=== PATIENT | female | born 1980 | race Caucasian/White ===

== ENCOUNTER 2016-07-04 06:00 | Inpatient (IN) ==
[2016-07-04] MEDS ORDERED: Naloxone 0.4 MG/ML INJ IVP PRN (06:03)
[2016-07-04] MEDS ORDERED: Metoclopramide 10 MG/2 ML VIAL IVP PRN (06:03)
[2016-07-04] MEDS ORDERED: Famotidine 20 MG/2 ML VIAL IVP PRN (06:03)
[2016-07-04] MEDS ORDERED: *HR* Nalbuphine 20 MG/ML AMPUL IVP PRN (06:06)
[2016-07-04] MEDS ORDERED: Oxytocin 20 units/ LR 1000 mL 20 UNIT/1,000 ML BAG IVC SCH (06:15)
[2016-07-04] MEDS ORDERED: Ringers Solution, Lactated 1,000 ML IVC SCH (06:15)
--- NOTE | 2016-07-04 06:58 | OB/GYN History & Physical ---
Date of Encounter: 07/04/16 Time of Encounter: 06:53 Assessment and Plan (1) 39 weeks gestation of Current visit: Yes Status: Acute -Induction today. -No complications during this Plan -Continue to monitor, LR -Continue pitocin -antinausea, pain meds, pepcid as needed. (2) Smoking Current visit: Yes Status: Acute -Current everyday smoker (3) H/O retained placenta in prior , currently Current visit: Yes Status: Acute -2008. Required D&C. Transfusion -B Positive Qualifiers: Trimester: third trimester Qualified Code(s): O09.293 - Supervision of with other poor reproductive or obstetric history, third trimester History of Present Illness Chief complaint: induction at 39w HPI: Ms. Lema is a 35F, , 39w6d(?) presents to be induced. There has been no complications with this delivery. Patient is a smoker. She has no complaints or concerns at this time. Desires an epidural. She is a smoker. Patient doesn't take any medication. Her OB is Dr. Jaimes. In 2008, patient underwent a D&C for retained placental contents. She "kept bleeding" and had to get a transfusion. Doesn't know whether she was in DIC or not. Denies previous or family diagnosis of bleeding disorders. GBS negative. BLood type B positive. Past Med Surg Social Fam HX - Past Medical History Medical history: no medical history Psychiatric history: no psych history - Past Surgical History Surgical History: other (D&C for retained placental contents. ) - Social History Smoking Status: Current every day smoker Packs per day: 0.5 Smokeless Tobacco Status: No Alcohol use: none Drug use: none - Family History Mother Hx Family Musculoskeletal Disorders: Yes (Parkinsons) Obstetrical History - Pregnancies : 4 Para: 3 Term: 3 : 0 Ab's: 0 Livin - History/Complications History/Complications: D&C for retained placental contents in 2008. Required blood transfusion. Medications and Allergies Ferrous Sulfate [Iron] 325 mg PO DAILY 07/04/16 [History] Vit/Iron Fumarate/FA [ Tablet] 1 each PO DAILY 07/04/16 [ History] Allergies No Known Allergies Allergy (Verified 07/04/16 06:38) Exam - Vital Signs Vital signs: Initial Vital Signs Temp Pulse Resp BP 97.5 F L 98 18 118/65 07/04/16 06:37 07/04/16 06:37 07/04/16 06:37 07/04/16 06:37 - Constitutional Constitutional: well developed, well nourished, no acute distress, average body habitus - Cardiovascular Cardiovascular exam: +S1, +S2, tachycardia - Abdomen Abdomen: Present: gravid, non tender - Uterus Uterus exam: Present: normal size, normal contour Results All other labs normal. - VTE Reasons for not Prescribing Prophylaxis: Treatment not Indicated - Low risk for VTE
[2016-07-04 07:28] LABS: Basophils % 0.3 %; Eosinophils # 0.1 K/mcL (0.0-0.6); Eosinophils % 1.2 %; Hematocrit 41.4 % (35.3-44.9); Hemoglobin 14.5 g/dL (11.5-15.4); Immature Granulocytes % 1.7 % (0-4); Lymphocytes # 1.7 K/mcL (0.6-4.6); Lymphocytes % 15.8 %; Mean Corpuscular Hemoglobin 31.5 pg (28.0-33.3); Mean Platelet Volume 12.1 fL (9.4-12.4); Monocytes # 0.9 K/mcL (0.0-1.3); Monocytes % 8.2 %; Platelet Count 165 K/mcL (140-400); Red Cell Distribution Width 12.7 % (11.5-14.5); Segmented Neutrophils % 72.8 %
[2016-07-04] MEDS ORDERED: miSOPROStol 25 MCG TABLET VG ONE (07:56)
[2016-07-04] MEDS ORDERED: *HR* FentaNYL (PF) 100 MCG/2 ML VIAL EP ONE (10:13)
[2016-07-04] MEDS ORDERED: Ringers Solution, Lactated 500 ML IVC ONE (10:13)
[2016-07-04] MEDS ORDERED: *HR* Ropivacaine/PF 0.2% 10 ML AMPUL EP ONE (10:13)
[2016-07-04] MEDS ORDERED: EPHEDrine 50 MG/ML VIAL IVP PRN (10:13)
[2016-07-04] MEDS ORDERED: Epidural Premix (fent/bupiv) 110 ML EP SCH (10:15)
--- NOTE | 2016-07-04 10:15 | Anesthesia Evaluation PreOp ---
Date of Encounter: 07/04/16 Time of Encounter: 10:15 - Past History Planned Operation: Labor Epidural Cardiac History: Denies any Significant Hx Pulmonary History: Smoker NEONATAL NURSE PRACTITIONER History: Denies Any Significant HX Other Medical History: Other (Gestational Diabetes - Diet Controlled) Anesthesia History: No Prior Anesthetic Complications, Past Anesthesia : Yes Alcohol Use: none Drug use: none Medications and Allergies Ferrous Sulfate [Iron] 325 mg PO DAILY 07/04/16 [History] Vit/Iron Fumarate/FA [ Tablet] 1 each PO DAILY 07/04/16 [ History] Allergies No Known Allergies Allergy (Verified 07/04/16 06:38) - Meds/Allergy Pre-op Review Medications Reviewed: Yes Allergies Reviewed: Yes Beta Blockers on Current Med List: No Anesthesia Results - Labs 07/04/16 06:58 Anesthesia Exam Last Vital Signs Temp 97.5 F L 07/04/16 06:37 Pulse 98 07/04/16 06:37 Resp 18 07/04/16 06:37 BP 118/65 07/04/16 06:37 Height: 1.7m Weight: 68kg NPO (# of Hours): >4 Pain Scale: 4 Pain Scale Used: Numeric (1 - 10) - HEENT Pupil (Motor): Pupils equal Mallampati: II Teeth: Normal Oral Opening: Greater than 3 - NEONATAL NURSE PRACTITIONER LOC: Oriented NEONATAL NURSE PRACTITIONER Motor: Normal RUE, Normal LUE, Normal RLE, Normal LLE, Normal Face NEONATAL NURSE PRACTITIONER Sensory: Normal: RUE, LUE, RLE, LLE, Face - Cardiac Rhythm: Regular Murmur: None JVD: No Carotid Bruit: No - Pulmonary Breath Sounds: bilateral Clear Respiratory Effort: Symmetrical Anesthesia Assess/Plan ASA Score: 2 Modified Zoya Scale for Level of Consciousness: Cooperative, oriented, and tranquil Anesthetic Plan: Regional Autologous Blood: Yes Monitoring Plan: Standard Monitors Recovery Plan: Other
--- NOTE | 2016-07-04 13:05 | OB Labor Progress Note ---
Date of Encounter: 07/04/16 Time of Encounter: 13:04 Labor Progress Note - Subjective Subjective: patient is s/p cystotec - Vital Signs Vital Signs: VSS - Cervix Cervix: 4cm/80/-1 - Heart Tones Heart Tones: CAT 1 - Plan Plan: AROM'ed with clear fluid. cont monitoring strip, anticipate
[2016-07-04] MEDS ORDERED: *HR* Ropivacaine/PF 0.2% 10 ML AMPUL ONE ×2 (13:10→16:08)
[2016-07-04] MEDS ORDERED: Epidural Premix (fent/bupiv) 110 ML EP ONE (13:10)
[2016-07-04] MEDS ORDERED: *HR* FentaNYL (PF) 100 MCG/2 ML VIAL ONE ×2 (13:10→16:08)
--- NOTE | 2016-07-04 13:33 | Anesthesia Procedures ---
Date of Encounter: 07/04/16 Time of Encounter: 13:13 Procedures: Anesthesia - Epidural/Spinal Patient ID/Chart reviewed: Yes Patient examined: Yes OB Eval: Gestational age: 39.6 OB Eval: : 4 OB Eval: Hx Para: 3 OB Eval: Dilated at (cm): 4 OB Eval: Contractions: Non-stressed pattern Consent Obtained: Yes Supplemental Oxygen: None/Room Air Site Prep: Aseptic Technique, Sterile prep and drape, 0.5% Chlorhexidine/Alcohol Patient position: upright Local Anesthetic: Lidocaine 1% Amount of Local Anesthetic used: 2 Touhy Needle Gauge: 18 Touhy Needle Depth (cm): 5 Catheter Depth at Skin (cm): 12 Test Dose (1.5% Lido + Epi): Volume given (mls): 5 Test Dose Result: Negative Loading Dose: Fentanyl (mcg): 100 Loading Dose: Other: Ropivacaine 0.2% 10mL Loading Dose Administered: Thru Catheter Infusion Med: 0.125% Bupivacaine w/ 2 mcg/ml Fentanyl Infusion Rate (mls/hr): 14 (Bolus 4mL q15min; Max 3/hr) Catheter Secured in Place: Tegaderm, Tape Interspace Used: L2-L3 Loss of Resistance (JAMEY): Yes Blood: No CSF: No Paresthesia: No Procedure: x1 attempt. Patient tolerated well. Vitals + FHT's: VSS and FHR stable throughout procedure. See nursing documentation.
[2016-07-04] MEDS ORDERED: Lidocaine -MPF 2% 5 ML VIAL INFILT ONE (17:02)
[2016-07-04] MEDS ORDERED: Lidocaine 1% 20 ML MDV ONE (17:21)
[2016-07-04] MEDS ORDERED: Sennosides 8.6 MG TABLET PO PRN (17:56)
[2016-07-04] MEDS ORDERED: Acetaminophen 325 MG TABLET PO PRN (17:56)
[2016-07-04] MEDS ORDERED: Oxytocin 20 units/ LR 1000 mL 20 UNIT/1,000 ML BAG IVC ONE (17:56)
[2016-07-04] MEDS ORDERED: Oxytocin 20 units/ LR 1000 mL 20 UNIT/1,000 ML BAG IV SCH (18:00)
--- NOTE | 2016-07-04 18:16 | OB/GYN Procedure Note ---
Delivery - Delivery Date: 07/04/16 Provider: Hui Jaimes Intrapartum events: none Delivery induction: AROM, misoprostol Delivery augmentation: rupture of membranes, pitocin Delivery monitor: external FHT, external uterine Anesthesia: epidural Estimated Blood Loss: 300 - (s) A Infant Delivery Date: 07/04/16 Delivery Time: 17:04 Presentation: vertex Position: JANELLE Route of delivery: vacuum extraction Gender: Female Viability: Viable Pounds: 8 Ounces: 0 Weight Gram: 3.63 kg at 1 minute: 8 at 5 mins: 9 at 10 mins: 10 Shoulder Dystocia: not encountered Specimens collected: cord blood Placenta: spontaneous Cord: 3 umbilical vessels - Repair Episiotomy: none Laceration Description: Periurethral (R side ) - Complications Delivery complications: none - Disposition Mom disposition: stable in LDR [place] disposition: stable in LDR - Comments Comments: 35 y/o delivered a viable female with vacuum assist @ 1704hrs over an intact perineum. Due to non reassuring heart rate, the vacuum was placed @ +2 station. Infant delivered in the JANELLE position with one pull and without complication. Weight 3630g, 8Lbs 0oz, APGARS 8/9/10, nose/mouth suctioned with the bulb suction. No nuchal cord was noted. The cord was clamped and cut. The placenta was delivered in tact with 3 VC @ 1709hrs. EBL 300, R periurethral tear repaired with 3-0 vicryl. Mom and stable.
[2016-07-04] MEDS: Ibuprofen 600 MG TABLET PO PRN (18:18)
[2016-07-05 03:33] LABS: Basophils % 0.3 %; Eosinophils # 0.1 K/mcL (0.0-0.6); Eosinophils % 0.5 %; Hematocrit 36.8 % (35.3-44.9); Immature Granulocytes % 0.6 % (0-4); Lymphocytes # 1.4 K/mcL (0.6-4.6); Lymphocytes % 11.5 %; Mean Corpuscular HGB Conc 34.5 g/dL (31.6-35.5); Mean Corpuscular Hemoglobin 31.6 pg (28.0-33.3); Mean Corpuscular Volume 91.5 fL (83.0-100.0); Mean Platelet Volume 12.4 fL (9.4-12.4); Monocytes # 1.1 K/mcL (0.0-1.3); Monocytes % 8.7 %; Neutrophils # 9.8 K/mcL (1.6-8.9); Platelet Count 140 K/mcL (140-400); Red Blood Count 4.02 M/mcL (3.82-4.97); Red Cell Distribution Width 12.6 % (11.5-14.5); Segmented Neutrophils % 78.4 %
[2016-07-05 03:36] LABS: Hemoglobin 12.7 g/dL (11.5-15.4)
[2016-07-05] MEDS: Ibuprofen 600 MG TABLET PO PRN (04:54)
--- NOTE | 2016-07-05 08:13 | Discharge Summary ---
Date of Encounter: 07/05/16 Time of Encounter: 08:10 - Discharge Diagnosis (1) Status post vaginal delivery Priority: Primary Status: Acute Comments: Continue routine care discharge home today follow up with Dr. Jaimes in 4-6 weeks (2) Gestational diabetes, diet controlled Priority: Secondary Status: Acute Comments: diet controlled patient will need a 2 hour gtt in 6 weeks Qualifiers: Trimester: unspecified trimester Qualified Code(s): O24.410 - Gestational diabetes mellitus in , diet controlled - Discharge Medications Prescriptions: Ibuprofen [Motrin] 600 mg PO Q6HR PRN #60 tablet PRN Reason: Cramping Home Medications: Vit/Iron Fumarate/FA [ Tablet] 1 each PO DAILY 07/04/16 [ History] Ibuprofen [Motrin] 600 mg PO Q6HR PRN #60 tablet 07/05/16 [Rx] Vit/FA 1 each PO DAILY tablet 07/05/16 [Rx] Allergies/Adverse Reactions: Allergies No Known Allergies Allergy (Verified 07/04/16 06:38) Data Procedures and tests throughout hospitalization: Laboratory Tests 07/04/16 07/04/16 07/04/16 06:58 15:06 18:56 WBC 10.9 RBC 4.60 Hgb 14.5 Hct 41.4 MCV 90.0 MCH 31.5 MCHC 35.0 RDW 12.7 Plt Count 165 MPV 12.1 Immature Gran % 1.7 Seg Neutrophils % 72.8 Lymphocytes % 15.8 Monocytes % 8.2 Eosinophils % 1.2 Basophils % 0.3 Neutrophils # 8.0 Lymphocytes # 1.7 Monocytes # 0.9 Eosinophils # 0.1 Basophils # 0.0 POC Glucose 64 117 H 07/05/16 02:58 WBC 12.5 H RBC 4.02 Hgb 12.7 D Hct 36.8 MCV 91.5 MCH 31.6 MCHC 34.5 RDW 12.6 Plt Count 140 MPV 12.4 Immature Gran % 0.6 Seg Neutrophils % 78.4 Lymphocytes % 11.5 Monocytes % 8.7 Eosinophils % 0.5 Basophils % 0.3 Neutrophils # 9.8 H Lymphocytes # 1.4 Monocytes # 1.1 Eosinophils # 0.1 Basophils # 0.0 POC Glucose Labs on day of discharge: Labs from last 24 hours 02/28/17 02/27/17 02/27/17 02:58 18:56 15:06 WBC 12.5 H RBC 4.02 Hgb 12.7 D Hct 36.8 MCV 91.5 MCH 31.6 MCHC 34.5 RDW 12.6 Plt Count 140 MPV 12.4 Immature Gran % 0.6 Seg Neutrophils % 78.4 Lymphocytes % 11.5 Monocytes % 8.7 Eosinophils % 0.5 Basophils % 0.3 Neutrophils # 9.8 H Lymphocytes # 1.4 Monocytes # 1.1 Eosinophils # 0.1 Basophils # 0.0 POC Glucose 117 H 64 Date of admission: 07/04/16 06:00 Primary care physician: PCP NO Consults: 07/04/16 17:56 Consult to Ophthalmic Photographer [CONS] Routine Comment: Vaginal delivery, consult needed Discharging clinician: Mamta Mcconnell Anticipated date of discharge: 07/05/16 - Patient Status Disposition: Home, Self-Care Condition: Good Functional capacity at discharge: independent ambulation - Discharge Instructions Follow Up With: LAUREN,PCP [Primary Care Provider] - Hui Jaimes MD [Partnered Physician] - - Diet and Activity Activity: increase activity as tolerated Diet: regular diet Hospital Course Reason for admission: induction of labor Delivery: Episiotomy: none Laceration: none Other procedures: none complications: none Discharge diagnosis: IUP at term delivered baby: female (bottle feeding) Time Attestation: Total time spent providing and/or coordinating discharge services: Time Spent: Less than 30 minutes Exam - Constitutional Vitals: Temp Pulse Resp BP Pulse Ox 97.6 F 83 16 95/56 100 07/05/16 04:55 07/05/16 04:55 07/05/16 04:55 07/05/16 04:55 07/05/16 04:55 General appearance IM: A&O X 3, pleasant, answers questions appropriately - Respiratory Respiratory exam: Present: CTAB - Cardiovascular Cardiovascular exam IM: Present: RRR, +S1, +S2 - GI/Abdominal GI/Abdominal exam IM: normal bowel sounds - Uterine Tone: Firm Uterus Position: 2 Fingers Below Umbilicus, Midline - Extremities Exam Extremities exam IM: Present: full ROM, normal capillary refill, normal inspection - Neurological Exam Neurological exam: alert, oriented X3, reflexes normal
[2016-07-05] MEDS ORDERED: Prenatal Vit/FA 1 EACH TABLET PO SCH (09:00)
[2016-07-05 09:40] VITALS: BP 98/60
== END 2016-07-05 11:38 | disposition home or self-care (01) | DRG 560 ==
LOC: 1NENULAB 06:00 → 1NENUOBS 19:34
PROVIDERS: ADMIT Student in an Organized Health Care Education/Training Program; ATTEND Student in an Organized Health Care Education/Training Program